=== PATIENT | female | born 1975 | race Caucasian/White ===

== ENCOUNTER 2018-08-11 14:00 | Emergency (ER) | payer MEDICAID ==
[~2018-08-11] VITALS: Ht 165.1 cm; Wt 68.2 kg
[2018-08-11] MEDS ORDERED: AZIT250T PO (14:19)
[2018-08-11] MEDS ORDERED: BENZ-16 PO (14:19)
[2018-08-11 14:29] VITALS: BP 115/38
== END 2018-08-11 14:30 | disposition home or self-care (01) ==
LOC: ER 14:01
DX: J02.9 Acute pharyngitis, unspecified (principal); R05 Cough; H92.01 Otalgia, right ear
CPT/HCPCS: 99283